=== PATIENT | female | born 1980 | race Caucasian/White ===

== ENCOUNTER 2020-10-23 22:19 | Emergency (ER) | payer OTHER ==
[~2020-10-23] VITALS: Ht 165.1 cm; Wt 83.9 kg
[2020-10-23] MEDS ORDERED: PLAQUENIL200 MG PO (22:48)
== END 2020-10-24 00:57 | disposition home or self-care (01) ==
LOC: ED 22:19
DX: G43.909 Migraine, unspecified, not intractable, without status migrainosus (principal); Z91.013 Allergy to seafood
CPT/HCPCS: 96374; 96375; 99283-25; J1200; J1885; J2765; J7030